=== PATIENT | female | born 1965 | race American Indian/Alaskan Native ===

== ENCOUNTER 2022-01-30 07:38 | Emergency (ER) | payer MEDICAID ==
[2022-01-30 08:10] VITALS: BP 130/78
[2022-01-30 09:01] LABS: Hematocrit 42.9 % (30.3-42.9); Hemoglobin 13.4 gm/dl (10.1-14.3); Mean Corpuscular HGB Conc 31 % (30-34); Mean Corpuscular Volume 91 fl (79-97); Platelet Count 211 K/mm3 (140-440); Red Cell Distribution Width 16.5 % (13.2-15.2)
[2022-01-30 09:26] LABS: Calcium 9.3 mg/dL (8.4-10.2)
--- NOTE | 2022-01-30 11:16 | Emergency Department Report ---
ED General Adult HPI - General Chief complaint: Recheck/Abnormal Lab/Rx Stated complaint: DIALYSIS PUI?: No Time Seen by Provider: 01/30/22 08:26 Source: patient Mode of arrival: Ambulatory Limitations: No Limitations - History of Present Illness Initial comments: 56 yo comes to ER for evaluation for urgent HD. She is on HD and visiting family from out of town. no cp no sob Going home tomorrow which is the day of scheduled HD. she has missed one session. Severity scale (0 -10): 0 - Related Data Home Medications Medication Instructions Recorded Confirmed Last Taken AtorvaSTATin [Lipitor] mg PO HS 12/14/14 12/14/14 Unknown Cyclobenzaprine HCl [Flexeril 5 MG 5 mg PO Q8H PRN 12/14/14 12/14/14 Unknown TAB] Hydroxychloroquine [Plaquenil] 400 mg PO QDAY 12/14/14 12/14/14 Unknown Insulin Glargine [Lantus VIAL] 100 unit SUB-Q QHS 12/14/14 12/14/14 Unknown lisinopriL [Zestril TAB] mg PO QDAY 12/14/14 12/14/14 Unknown metFORMIN [Glucophage] 250 mg PO BID 12/14/14 12/14/14 Unknown traZODone [Desyrel] 50 mg PO QHS 12/14/14 12/14/14 Unknown Allergies Allergy/AdvReac Type Severity Reaction Status Date / Time acetaminophen [From Tylenol] Allergy Itching Verified 01/30/22 08:10 ED Review of Systems ROS: Stated complaint: DIALYSIS Other details as noted in HPI Comment: All other systems reviewed and negative ED Past Medical Hx - Past Medical History Previous Medical History?: Yes Hx Diabetes: Yes Hx Renal Disease: Yes Additional medical history: lupus - Surgical History Past Surgical History?: Yes Additional Surgical History: hysterectomy - Family History Family history: no significant - Social History Smoking Status: Never Smoker Substance Use Type: None - Medications Home Medications: Home Medications Medication Instructions Recorded Confirmed Last Taken Type AtorvaSTATin [Lipitor] mg PO HS 12/14/14 12/14/14 Unknown History Cyclobenzaprine HCl [Flexeril 5 MG 5 mg PO Q8H PRN 12/14/14 12/14/14 Unknown History TAB] Hydroxychloroquine [Plaquenil] 400 mg PO QDAY 12/14/14 12/14/14 Unknown History Insulin Glargine [Lantus VIAL] 100 unit SUB-Q QHS 12/14/14 12/14/14 Unknown History lisinopriL [Zestril TAB] mg PO QDAY 12/14/14 12/14/14 Unknown History metFORMIN [Glucophage] 250 mg PO BID 12/14/14 12/14/14 Unknown History traZODone [Desyrel] 50 mg PO QHS 12/14/14 12/14/14 Unknown History ED Physical Exam - General Limitations: No Limitations General appearance: alert, in no apparent distress - Head Head exam: Present: atraumatic, normocephalic - Eye Eye exam: Present: normal appearance - ENT ENT exam: Present: mucous membranes moist - Neck Neck exam: Present: normal inspection - Respiratory Respiratory exam: Present: normal lung sounds bilaterally. Absent: respiratory distress - Cardiovascular Cardiovascular Exam: Present: regular rate, normal rhythm. Absent: systolic murmur, diastolic murmur, rubs, gallop - GI/Abdominal GI/Abdominal exam: Present: soft, normal bowel sounds - Extremities Exam Extremities exam: Present: normal inspection - Back Exam Back exam: Present: normal inspection - Neurological Exam Neurological exam: Present: alert, oriented X3 - Psychiatric Psychiatric exam: Present: normal affect, normal mood - Skin Skin exam: Present: warm, dry, intact, normal color. Absent: rash ED Course Vital Signs 01/30/22 08:07 Temperature 98.6 F Pulse Rate 61 Respiratory 18 Rate Blood Pressure 130/78 [Left] O2 Sat by Pulse 100 Oximetry ED Medical Decision Making - Lab Data Result diagrams: 01/30/22 08:36 01/30/22 08:36 - Medical Decision Making Labs 01/30/22 01/30/22 08:36 08:36 WBC 6.7 RBC 4.70 Hgb 13.4 Hct 42.9 MCV 91 MCH 29 MCHC 31 RDW 16.5 H Plt Count 211 Sodium 144 Potassium 4.4 Chloride 102.2 Carbon Dioxide 24 Anion Gap 22 BUN 40 H Creatinine 7.2 H Estimated GFR 7 BUN/Creatinine Ratio 6 Glucose 339 H Calcium 9.3 Phosphorus 6.40 H NT-Pro-B Natriuret Pep 3292 H Vital Signs 01/30/22 08:07 Temperature 98.6 F Pulse Rate 61 Respiratory 18 Rate Blood Pressure 130/78 [Left] O2 Sat by Pulse 100 Oximetry labs noted vss pt with no complaints no need for emergent HD Pt will go to her HD clinic tomorrow as scheduled. - Differential Diagnosis ? HD Critical care attestation.: If time is entered above; I have spent that time in minutes in the direct care of this critically ill patient, excluding procedure time. ED Disposition Clinical Impression: CKD (chronic kidney disease) Disposition: 01 HOME / SELF CARE / HOMELESS Is pt being admited?: No Does the pt Need Aspirin: No Condition: Stable Time of Disposition: 11:21
== END 2022-01-30 12:00 | disposition home or self-care (01) ==
LOC: ED 07:38
DX: E11.22 Type 2 diabetes mellitus with diabetic chronic kidney disease (principal); N18.9 Chronic kidney disease, unspecified; Z90.710 Acquired absence of both cervix and uterus; Z98.890 Other specified postprocedural states; Z79.899 Other long term (current) drug therapy; Z88.6 Allergy status to analgesic agent
CPT/HCPCS: 36415; 80048; 83880; 84100; 85027; 99283